=== PATIENT | male | born 1970 | race Caucasian/White ===

== ENCOUNTER 2019-01-30 07:49 | Emergency (ER) | payer BC ==
[2019-01-30 08:08] VITALS: BP 129/90
--- NOTE | 2019-01-30 08:12 | UC ---
Lower Extremity/Ankle HPI - HPI Summary HPI Summary: 48 y/o male presents to the urgent care c/o left middle toe toe pain w/ a bruise s/p banging a wooden stool yesterday morning. Pt applied ice all day, but has not taken any medications to alleviate pain. this morning it was more painful when he walks and he is unable to bend it. Pain is 8/10 when he walks and 1/10 at rest. Pt denies previous injury to that toe, numbness or tingling sensation, calf pain, SOB, chest pain, abdominal pain, N/D/V. - History of Current Complaint Chief Complaint: UCLowerExtremity Stated Complaint: LT FOOT INJURY Time Seen by Provider: 01/30/19 08:11 Hx Obtained From: Patient Onset/Duration: Sudden Onset, Lasting Days - 1 day, Still Present, Worse Since - this morning Severity Initially: Moderate Severity Currently: Moderate Pain Intensity: 8 Pain Scale Used: 0-10 Numeric Aggravating Factor(s): Ambulation Alleviating Factor(s): Rest, Elevation, Ice Able to Bear Weight: Yes - Risk Factors Gout Risk Factors: Negative DVT Risk Factors: Negative Septic Arthritis Risk Factor: Negative - Allergies/Home Medications Allergies/Adverse Reactions: Allergies Allergy/AdvReac Type Severity Reaction Status Date / Time No Known Allergies Allergy Verified 01/30/19 08:07 Home Medications: Home Medications Multivitamins/Minerals TAB* [Theragran/minerals TAB*] 1 tab PO DAILY 01/30/19 [ History Confirmed 01/30/19] PMH/Surg Hx/FS Hx/Imm Hx Previously Healthy: Yes Cardiovascular History: Hypertension - diet control - Surgical History Surgical History: Yes Surgery Procedure, Year, and Place: ear surgery - Family History Known Family History: Positive: Hypertension - Social History Occupation: Employed Full-time Lives: With Family Alcohol Use: None Substance Use Type: None Smoking Status (MU): Never Smoked Tobacco Review of Systems All Other Systems Reviewed And Are Negative: Yes Constitutional: Positive: Negative Skin: Positive: Bruising - over the base of the left 3rd toe s/p injury Eyes: Positive: Negative ENT: Positive: Negative Respiratory: Positive: Negative Cardiovascular: Positive: Negative Gastrointestinal: Positive: Negative Genitourinary: Positive: Negative Motor: Positive: Negative Neurovascular: Positive: Negative Musculoskeletal: Positive: Decreased ROM - left 3rd toe, Other: - left 3rd toe pain s/p injury Neurological: Positive: Negative Psychological: Positive: Negative Is Patient Immunocompromised?: No Physical Exam - Summary Physical Exam Summary: Vital Signs Reviewed: Yes General : well developed, well nourished male w/o any apparent distress Eyes: Positive: Conjunctiva Clear - PERRLA, EOMI ENT: Positive: Normal ENT inspection, Hearing grossly normal, Pharynx normal, TMs normal Neck: Positive: Supple, Nontender, No Lymphadenopathy Respiratory: Positive: Chest non-tender, Lungs clear, Normal breath sounds, No respiratory distress Cardiovascular: Positive: RRR, No Murmur, Pulses Normal Abdomen Description: Positive: Nontender, No Organomegaly, Soft. Negative: CVA Tenderness (R), CVA Tenderness (L) Bowel Sounds: Positive: Present Musculoskeletal: Positive: Strength Intact, ROM Intact, No Edema, Left Foot/Toes : Pt is able to bear weight but ambulate with mild limping. LF foot :No surface trauma, ecchymosis, erythema, lesions, ulcers or break in skin integrity. The L foot is without obvious asymmetry or deformity when compared to the R foot. No bony step-off, tenderness to palpation over base w/ a bruise of left 3rd toe over the dorsal side., no tenderness of hindfoot, Decrease plantar/dorsiflexion, inversion/eversion due to pain. Distal motor and neurovascular status are intact. FROM of ankle and foot Neurological Exam: Normal Psychological Exam: Normal Skin Exam: Normal Triage Information Reviewed: Yes Vital Signs: Initial Vital Signs Temp 99.1 F 01/30/19 08:03 Pulse 83 01/30/19 08:03 Resp 16 01/30/19 08:03 BP 129/90 01/30/19 08:03 Pulse Ox 95 01/30/19 08:03 Lower Extremity Course/Dx - Course Course Of Treatment: 48 y/o male presents to the urgent care c/o left middle toe toe pain w/ a bruise s/p banging a wooden stool yesterday morning. Pt applied ice all day, but has not taken any medications to alleviate pain. this morning it was more painful when he walks and he is unable to bend it. Pain is 8/10 when he walks and 1/10 at rest. Pt denies previous injury to that toe, numbness or tingling sensation, calf pain, SOB, chest pain, abdominal pain, N/D/V. Hx obtained. Pt given Ibuprofen PO at the clinic for pain. Pt tolerated well medication and pain decrease. LF 3rd toe X-ray ordered, Impression:Oblique fracture through the proximal and distal end of the third proximal phalanx. Minimal displacement is noted as per radiologist. Pt's foot immobilized with jesse-bandage and body tape it w/ 4th toe and given a post-op shoe to avoid flexion. Pt given crutches to avoid weight bearing. Advised RICE, and advised to take Ibuprofen PO q6-8hrs prn for pain, If not improvement of symptoms to f/u with Orthopedic DR Harrison in 1-2 days referral for further evaluation and treatment. Pt's BP is mildly elevated today advised to decrease salt in diet, monitor BP and f/u with PCP for further management. Pt understood and agreed with D/C instructions - Differential Dx/Diagnosis Differential Diagnosis/HQI/PQRI: Contusion, Dislocation, Fracture (Closed), Sprain, Strain, Tendonitis Provider Diagnosis: Fracture of third toe, left, closed, Uncontrolled hypertension Discharge - Sign-Out/Discharge Documenting (check all that apply): Patient Departure - d/C home All imaging exams completed and their final reports reviewed: Yes - Discharge Plan Condition: Stable Disposition: HOME Patient Education Materials: Toe Fracture (ED) Referrals: Melyssa August MD [Primary Care Provider] - 3 Days Shiraz Harrison MD [Medical Doctor] - 1 Day Additional Instructions: 1-Please take Ibuprofen PO q6-8hrs prn after meals to alleviate pain and swelling. 2-Please apply ice, keep your foot immobilized by body taping with the Jesse bandage. use the post-op shoe. Avoid weight bearing by using the crutches. Avoid strenuous exercise. 3- Please f/u with your orthopedic Dr Harrison in 1-2 days if not improvement of symptoms for further evaluation and treatment. 4- Your BP is mildly elevated today. please decrease salt in your diet, monitor BP and if it continues to be elevated please f/u with your PCP for further management. - Billing Disposition and Condition Condition: STABLE Disposition: Home
[2019-01-30] MEDS ORDERED: Ibuprofen TAB* 400 MG PO ONE (08:43)
== END 2019-01-30 09:12 | disposition home or self-care (01) ==
LOC: UCEAST 07:49
DX: S92.532A Displaced fracture of distal phalanx of left lesser toe(s), initial encounter for closed fracture (principal); S92.512A Displaced fracture of proximal phalanx of left lesser toe(s), initial encounter for closed fracture; W22.8XXA Striking against or struck by other objects, initial encounter; Y92.9 Unspecified place or not applicable; I10 Essential (primary) hypertension
CPT/HCPCS: 99213; A9270-GY; G0463